=== PATIENT | male | born 1990 ===

== ENCOUNTER 2017-01-29 16:42 | Emergency (ER) | payer SELFPAY ==
[~2017-01-29] VITALS: Ht 172.7 cm; Wt 72.6 kg
[2017-01-29 16:45] VITALS: BP 111/72
--- NOTE | 2017-01-29 17:18 | Emergency Room Report ---
History of Present Illness General Chief Complaint: Altered Level of Consciousness Source: EMS Present Illness HPI Patient was apparently found on the sidewalk and unconscious. It was a needle his pocket and patient also smells of alcohol. There was concerned that patient likely had acute alcohol intoxication and drug abuse. No other complaints are noted. Patient is unconscious and unable to provide history. Patient however was maintaining his airway and responsive to tactile or noxious stimuli. No further history is available. Symptoms noted to be highly severe.No other modifying factors. No other associated signs and symptoms. No other complaints were noted. Allergies: Coded Allergies: UNABLE TO ASSESS (Unverified , 01/29/17) Patient History Past Medical History: unable to obtain Past Surgical History: unable to obtain Pertinent Family History: unable to obtain Social History: Reports: alcohol use, drug use Social History Narrative per paramedics Reviewed Nursing Documentation: PMH: Agreed, PSxH: Agreed Nursing Documentation-PMH Past Medical History: Deferred Review of Systems All Other Systems: limited - poor mental status Physical Exam Vital Signs Date Time Temp Pulse Resp B/P (MAP) Pulse Ox O2 Delivery O2 Flow Rate FiO2 01/29/17 16:26 97.9 102 16 102/74 98 Room Air Sp02 EP Interpretation: reviewed, normal General Appearance: lethargic, thin, Stupor Head: atraumatic Eyes: bilateral eye normal inspection ENT: dry mucus membranes Neck: normal inspection, supple, no bony tend Respiratory: normal inspection, lungs clear, normal breath sounds, no respiratory distress, no retraction, no wheezing Cardiovascular #1: regular rate, rhythm, no edema Gastrointestinal: normal inspection, normal bowel sounds, non tender, soft, no guarding, no hernia Genitourinary: deferred Musculoskeletal: back normal Neurologic: other - stupor, grossly nonfocal Psychiatric: depressed affect, other - very sleepy Skin: normal inspection, normal color, no rash Medical Decision Making Diagnostic Impression: Primary Impression: Drug abuse Additional Impression: Altered level of consciousness ER Course Patient presents emergency department with acute altered mental status likely secondary to diabetes. Patient was monitored in emergency department. Patient then became clinically sober and awake. He refused laboratory workup therefore patient be discharged.Patient is advised to follow up with primary doctor in 2- 3 days and return the emergency room for any worsening symptoms and as needed. Last Vital Signs Date Time Temp Pulse Resp B/P (MAP) Pulse Ox O2 Delivery O2 Flow Rate FiO2 01/29/17 16:26 97.9 102 16 102/74 98 Room Air Status: improved Disposition: HOME, SELF-CARE Condition: Stable Scripts Unable to Obtain Active Prescriptions or Reported Meds MALLORY FONG M.D. Jan 29, 2017 17:18
[2017-01-29 18:30] VITALS: BP 112/61
[2017-01-29 21:53] VITALS: BP 128/89
== END 2017-01-29 21:55 | disposition home or self-care (01) ==
LOC: EDBD 16:42 → EMR 21:51
DX: F19.10 Other psychoactive substance abuse, uncomplicated (principal); R41.82 Altered mental status, unspecified
CPT/HCPCS: 99284